=== PATIENT | female | born 1995 | race Asian ===

== ENCOUNTER 2017-12-27 16:41 | Emergency (ER) | payer MEDICAID ==
[~2017-12-27] VITALS: Ht 160 cm; Wt 56.7 kg
[2017-12-27 16:43] VITALS: BP 112/75
[2017-12-27] MEDS ORDERED: IBUPROFEN 600 MG TABLET PO ONE ×2 (16:52→17:00)
== END 2017-12-27 18:24 | disposition home or self-care (01) ==
LOC: ER 16:43
DX: R51 Headache (principal); R42 Dizziness and giddiness; V49.59XA Passenger injured in collision with other motor vehicles in traffic accident, initial encounter; Y93.89 Activity, other specified; Y92.413 State road as the place of occurrence of the external cause; Y99.8 Other external cause status
CPT/HCPCS: A4606; Z7610

== ENCOUNTER 2019-01-28 22:10 | Emergency (ER) | payer MEDICAID, OTHER ==
[~2019-01-28] VITALS: Ht 157.5 cm; Wt 56.7 kg
--- NOTE | 2019-01-28 22:15 | NUR ---
"BIBMOTHER C/O SOB X 1 HOUR, HX OF ASTHMA." PT AAOX4, NAD NOTED, VSS, PENDING MD CARTER
[2019-01-28] MEDS ORDERED: predniSONE 20 MG TABLET PO ONE (23:00)
[2019-01-28] MEDS ORDERED: IPRATROPIUM NEB FS 0.5 MG/2.5 ML AMPUL.NEB NEB ONE (23:00)
[2019-01-28] MEDS ORDERED: ALBUTEROL FS 2.5 MG/3 ML VIAL.NEB NEB ONE (23:00)
[2019-01-28 23:10] VITALS: BP 121/60
[2019-01-28] MEDS ORDERED: ALBUTEROL FS 2.5 MG/3 ML VIAL.NEB ONE (23:12)
[2019-01-28] MEDS ORDERED: IPRATROPIUM NEB FS 0.5 MG/2.5 ML AMPUL.NEB ONE (23:12)
[2019-01-28] MEDS ORDERED: predniSONE 20 MG TABLET ONE (23:38)
--- NOTE | 2019-01-28 23:46 | NUR ---
PATIENT REFUSED PREDNISONE, EDILBERTO BATISTA AWARE
--- NOTE | 2019-01-28 23:46 | NUR ---
Patient discharged to home in stable condition. Written and verbal after care instructions given. Patient verbalizes understanding of instruction. IV removed. Catheter intact and site benign. Pressure and 4x4 applied to site. No bleeding noted.
== END 2019-01-28 23:55 | disposition home or self-care (01) ==
LOC: ER 22:19
DX: J45.909 Unspecified asthma, uncomplicated (principal)
CPT/HCPCS: 94010; 94640; 99283; J7512

== ENCOUNTER 2021-04-08 13:37 | Emergency (ER) | payer BC, OTHER ==
[~2021-04-08] VITALS: Ht 157.5 cm; Wt 59.0 kg
--- NOTE | 2021-04-08 14:00 | NUR ---
patient came in to the er c/o nausea and dizziness, got rearended. on marino air, breathing evenly, unlabored. connected to the monitor and pulse ox. Kept comfortable, will continue to monitor accordingly.
[2021-04-08] MEDS ORDERED: ACETAMINOPHEN 325 MG TABLET ONE (15:57)
[2021-04-08] MEDS ORDERED: ACETAMINOPHEN 325 MG TABLET PO ONE (16:00)
[2021-04-08] MEDS ORDERED: IBUP-1955 PO (17:09)
[2021-04-08 17:26] VITALS: BP 129/77
--- NOTE | 2021-04-08 17:26 | NUR ---
Patient discharged to home in stable condition. Written and verbal after care instructions given. Patient verbalizes understanding of instruction.
== END 2021-04-08 17:26 | disposition home or self-care (01) ==
LOC: ER 13:48
DX: S06.0X0A Concussion without loss of consciousness, initial encounter (principal); J45.909 Unspecified asthma, uncomplicated; V49.69XA Unspecified car occupant injured in collision with other motor vehicles in traffic accident, initial encounter; Y93.89 Activity, other specified; Y92.413 State road as the place of occurrence of the external cause; Y99.8 Other external cause status
CPT/HCPCS: 70450-TC; 72125-TC